=== PATIENT | male | born 1960 | race Caucasian/White ===

== ENCOUNTER → 2020-06-14 | Outpatient (CLI) | payer BC ==
--- NOTE | 2020-06-15 15:52 | REPVR ---
PROCEDURE INFORMATION: Exam: MR Lumbar Spine Without Contrast. Exam date and time: 06/14/2020 7:49 PM Age: 59 years old Clinical indication: Lumbago with sciatica; Left; Additional info: Lumbago w/ sciaticia lt side TECHNIQUE: Imaging protocol: Multiplanar magnetic resonance images of the lumbar spine without intravenous contrast. COMPARISON: No relevant prior studies available. FINDINGS: Vertebrae: No acute compression fracture is seen. Bone marrow signal is within normal limits. Spinal cord: The conus medullaris terminates at the L1 level. There is no evidence of arachnoiditis or cauda equina compression. T12-L1: There is mild diffuse circumferential disc bulging and facet arthropathy. This is causing mild spinal canal stenosis and mild bilateral neural foraminal narrowing. L1-L2: There is marked diffuse circumferential disc bulging, circumferential osteophytic ridging, congenitally shortened pedicles, mild facet arthropathy, and thickening of the ligamentum flavum. This is causing mild/moderate spinal canal stenosis and mild bilateral neural foraminal narrowing. L2-L3: There is marked diffuse circumferential disc bulging, circumferential osteophytic ridging, congenitally shortened pedicles, mild facet arthropathy, and thickening of the ligamentum flavum. This is causing mild/moderate spinal canal stenosis, mild right neural foraminal narrowing, and moderate left neural foraminal narrowing. L3-L4: There is marked diffuse circumferential disc bulging, circumferential osteophytic ridging, congenitally shortened pedicles, severe facet arthropathy, and thickening of the ligamentum flavum. This is causing mild spinal canal stenosis, moderate right neural foraminal narrowing, and severe left neural foraminal narrowing. L4-L5: There is disc dehydration, mild disc space narrowing, marked diffuse circumferential disc bulging, circumferential osteophytic ridging, and severe facet arthropathy. This is causing minimal spinal canal stenosis, severe left neural foraminal narrowing, and moderate right neural foraminal narrowing. L5-S1: A decompressive laminectomy has been performed. There is moderate diffuse circumferential disc bulging and facet arthropathy. A far left lateral disc protrusion is present, abutting the left extraforaminal L5 nerve. The spinal canal is widely patent. Severe left neural foraminal narrowing is present. Soft tissues: Unremarkable. IMPRESSION: Marked degenerative changes of the lumbar spine as discussed above Electronically signed by: Josh Sanchez On 06/15/2020 15:51:48 PM
== END ==
LOC: M RAD 17:29
PROVIDERS: ATTEND Nurse Practitioner Family
DX: M54.42 Lumbago with sciatica, left side (principal)

== ENCOUNTER → 2020-08-15 | Outpatient (REF) | payer BC | LOC: M LAB REF 13:50 | PROVIDERS: ATTEND Dermatology | DX: D23.61 Other benign neoplasm of skin of right upper limb, including shoulder (principal) ==

== ENCOUNTER 2021-06-11 08:07 | Emergency (ER) | payer BC ==
[~2021-06-11] VITALS: Ht 190.5 cm; Wt 117.3 kg
[2021-06-11] MEDS ORDERED: ACETAMINOPHEN 325 MG TAB PO ONE (10:20)
[2021-06-11] MEDS ORDERED: PERC5TAB12 PO (11:17)
[2021-06-11 12:20] VITALS: BP 148/84
[2021-06-15] MEDS ORDERED: LISI10TA22 PO (11:42)
[2021-06-15] MEDS ORDERED: QC A650T3 PO (11:42)
== END 2021-06-11 12:27 | disposition home or self-care (01) ==
LOC: M ED 08:07
DX: S82.862A Displaced Maisonneuve's fracture of left leg, initial encounter for closed fracture (principal); U07.1 COVID-19; I10 Essential (primary) hypertension; W10.1XXA Fall (on)(from) sidewalk curb, initial encounter; Y92.9 Unspecified place or not applicable; Y93.9 Activity, unspecified; Y99.0 Civilian activity done for income or pay

== ENCOUNTER → 2021-06-14 | Outpatient (CLI) | payer BC ==
[~2021-06-14] MED LIST: LISI10TA22 PO; PERC5TAB12 PO; QC A650T3 PO
== END ==
LOC: M SOG 16:20
PROVIDERS: ATTEND Orthopaedic Surgery Sports Medicine
DX: S82.842A Displaced bimalleolar fracture of left lower leg, initial encounter for closed fracture (principal); X58.XXXA Exposure to other specified factors, initial encounter; Y92.89 Other specified places as the place of occurrence of the external cause; Y93.9 Activity, unspecified; Y99.9 Unspecified external cause status

== ENCOUNTER 2021-06-18 10:40 | Day surgery (SDC) | payer OTHER ==
[~2021-06-18] VITALS: Ht 190.5 cm; Wt 118.8 kg
[~2021-06-18 10:40] MED LIST changes: +LR 1,000 ML IV ONE; +ceFAZolin SOD 2 GM in IV 1 EA IV ONE
[2021-06-18] MEDS ORDERED: fentaNYL 100 MCG/2 ML INJECTION (J3010) As Ordered ONE ×2 (13:13→16:55)
[2021-06-18] MEDS ORDERED: ETOMIDATE INJ 20MG/10ML VIAL As Ordered ONE (13:13)
[2021-06-18] MEDS ORDERED: MIDAZOLAM INJ 2MG/2ML VIAL (J2250 PER 1MG) As Ordered ONE (13:13)
[2021-06-18] MEDS ORDERED: PHENYLephrine 500MCG 5ML (100MCG/ML) SYRINGE As Ordered ONE ×2 (13:13→13:45)
[2021-06-18] MEDS ORDERED: propofoL 200 MG/20 ML VIAL As Ordered ONE ×2 (13:13→16:01)
[2021-06-18] MEDS ORDERED: EPINEPHrine INJ 1 MG/ML 1ML AMP As Ordered ONE (13:13)
[2021-06-18] MEDS ORDERED: PHENYLEPHRINE 10MG/ML 1ML VIAL (J2370 PER 1) As Ordered ONE (14:10)
[2021-06-18] MEDS ORDERED: propofoL 500 MG/50 ML VIAL As Ordered ONE ×2 (14:22→15:13)
[2021-06-18] MEDS: fentaNYL 100 MCG/2 ML INJECTION (J3010) IV PRN ×4 (16:54→17:09)
[2021-06-18] MEDS ORDERED: HYDROmorphone HCL 2MG/ML 1ML VIAL As Ordered ONE (17:04)
[2021-06-18] MEDS: HYDROMORPHONE HCL 0.5 MG/ 0.5 ML SYRINGE (J1170 PER 1) IV PRN ×10 (17:09→17:58)
[2021-06-18] MEDS ORDERED: ONDANSETRON 4MG/2ML VIAL IV PRN ×2 (17:20→17:25)
[2021-06-18] MEDS ORDERED: LR 1,000 ML IV SCH ×2 (17:20→17:25)
[2021-06-18] MEDS ORDERED: METOCLOPRAMIDE INJ 10MG/2ML VIAL (J2765 PER 1) IV PRN (17:20)
[2021-06-18] MEDS ORDERED: PERCOCET 5MG/325MG TAB PO PRN (17:25)
[2021-06-18] MEDS ORDERED: ACETAMINOPHEN TAB 650MG DOSE (2X325MG) PO PRN (17:25)
[2021-06-18] MEDS ORDERED: MORPHINE 2 MG/ML 1ML VIAL (J2270) IV PRN (17:25)
[2021-06-18] MEDS: PERCOCET 5MG/325MG TAB PO PRN ×2 (17:29→18:04)
[2021-06-18] MEDS ORDERED: fentaNYL 100 MCG/2 ML INJECTION (J3010) IV PRN (17:55)
[2021-06-18] MEDS ORDERED: ACETAMINOPHEN *IV* 500 MG in IV 1 EA IV SCH (18:30)
[2021-06-18 19:42] VITALS: BP 148/93
== END 2021-06-18 19:53 | disposition home or self-care (01) ==
LOC: M SDC 10:40
PROVIDERS: ATTEND Orthopaedic Surgery Sports Medicine
DX: S82.842A Displaced bimalleolar fracture of left lower leg, initial encounter for closed fracture (principal); X50.1XXA Overexertion from prolonged static or awkward postures, initial encounter; Y92.59 Other trade areas as the place of occurrence of the external cause; Y93.01 Activity, walking, marching and hiking; Y99.0 Civilian activity done for income or pay; U07.1 COVID-19; I10 Essential (primary) hypertension; Z79.899 Other long term (current) drug therapy; Z79.891 Long term (current) use of opiate analgesic
CPT/HCPCS: 27769; 27829; 76000; 93005; C1713; J0131; J0171; J0690; J2250; J2370; J3010

== ENCOUNTER → 2021-06-27 | Outpatient (CLI) | payer OTHER ==
[~2021-06-27] MED LIST changes: -LR 1,000 ML IV ONE; -ceFAZolin SOD 2 GM in IV 1 EA IV ONE
== END ==
LOC: M SOG 09:54
PROVIDERS: ATTEND Orthopaedic Surgery Sports Medicine
DX: Z48.89 Encounter for other specified surgical aftercare (principal)

== ENCOUNTER 2021-07-12 09:43 | Outpatient (RCR) | payer OTHER | END 2021-07-16 | LOC: M PT 09:43 | PROVIDERS: ATTEND Orthopaedic Surgery Sports Medicine | DX: Z48.89 Encounter for other specified surgical aftercare (principal); S82.842D Displaced bimalleolar fracture of left lower leg, subsequent encounter for closed fracture with routine healing ==

== ENCOUNTER 2021-08-15 09:47 | Outpatient (RCR) | payer OTHER | END 2021-08-16 | LOC: M PT 09:47 | PROVIDERS: ATTEND Orthopaedic Surgery Sports Medicine | DX: Z47.89 Encounter for other orthopedic aftercare (principal); Z98.890 Other specified postprocedural states ==

== ENCOUNTER → 2021-08-21 | Outpatient (CLI) | payer OTHER | LOC: M SOG 08:52 | PROVIDERS: ATTEND Orthopaedic Surgery | DX: S82.842A Displaced bimalleolar fracture of left lower leg, initial encounter for closed fracture (principal); X58.XXXA Exposure to other specified factors, initial encounter; Y92.9 Unspecified place or not applicable ==

== ENCOUNTER 2021-09-12 09:05 | Outpatient (RCR) | payer OTHER | END 2021-09-15 | LOC: M PT 09:05 | PROVIDERS: ATTEND Orthopaedic Surgery Sports Medicine | DX: Z48.89 Encounter for other specified surgical aftercare (principal); Z98.890 Other specified postprocedural states ==

== ENCOUNTER 2021-09-25 07:51 | Outpatient (RCR) | payer OTHER | END 2021-10-16 | LOC: M PT 07:51 | PROVIDERS: ATTEND Orthopaedic Surgery Sports Medicine | DX: Z48.89 Encounter for other specified surgical aftercare (principal); Z98.890 Other specified postprocedural states ==